=== PATIENT | female | born 1970 | race Caucasian/White ===

== ENCOUNTER 2022-11-23 13:41 | Emergency (ER) | payer BC ==
[2022-11-23 14:15] VITALS: BP 135/78; PULSE 65
[2022-11-23] MEDS ORDERED: HYDROmorphone 1 MG/ML Syringe IM ONE (14:34)
[2022-11-23] MEDS ORDERED: Ketorolac 60 MG/2 ML SDV IM ONE (14:34)
== END 2022-11-23 15:30 | disposition home or self-care (01) ==
LOC: JD.ED 13:41
DX: G89.18 Other acute postprocedural pain (principal); M79.671 Pain in right foot; Z88.5 Allergy status to narcotic agent; Z88.8 Allergy status to other drugs, medicaments and biological substances
CPT/HCPCS: 96372; 99283; J1170; J1885

== ENCOUNTER 2022-12-13 06:14 | Emergency (ER) | payer BC ==
[2022-12-13 06:25] VITALS: BP 149/90; PULSE 89
[2022-12-13] MEDS ORDERED: HYDROmorphone 0.5 MG/0.5 ML Syringe IVPUSH ONE (06:43)
[2022-12-13] MEDS ORDERED: Metoclopramide 10 MG/2 ML SDV IVPUSH ONE (06:44)
[2022-12-13] MEDS ORDERED: Dextrose 5%-0.9% NaCl 1,000 ML IV SCH (06:45)
== END 2022-12-13 09:14 | disposition home or self-care (01) ==
LOC: JD.ED 06:14
DX: A08.4 Viral intestinal infection, unspecified (principal); Z88.5 Allergy status to narcotic agent
CPT/HCPCS: 36415; 73660; 80053; 83690; 85025; 85652; 86140; 96361; 96374; 96375; 99284; J1170; J2765; J7042; 99283

== ENCOUNTER 2023-01-02 14:29 | Emergency (ER) | payer BC ==
[2023-01-02 17:25] VITALS: BP 126/75; PULSE 80
== END 2023-01-02 17:10 | disposition home or self-care (01) ==
LOC: JD.ED 14:29
DX: L08.9 Local infection of the skin and subcutaneous tissue, unspecified (principal); Z88.5 Allergy status to narcotic agent; Z79.899 Other long term (current) drug therapy
CPT/HCPCS: 99283

== ENCOUNTER 2023-05-15 18:07 | Emergency (ER) | payer BC ==
[2023-05-15] MEDS ORDERED: cefTRIAXone 1 GM Vial IM ONE (18:26)
[2023-05-15] MEDS ORDERED: cefTRIAXone 1 GM, Lidocaine 1% 2.1 ML IM ONE ×2 (19:17)
[2023-05-15 19:47] VITALS: BP 119/51; PULSE 72
== END 2023-05-15 19:51 | disposition home or self-care (01) ==
LOC: JD.ED 18:07
DX: S90.421A Blister (nonthermal), right great toe, initial encounter (principal); L08.9 Local infection of the skin and subcutaneous tissue, unspecified; Z88.5 Allergy status to narcotic agent
CPT/HCPCS: 96372; 99283; J0696; J3490